=== PATIENT | male | born 1935 | race Caucasian/White ===

== ENCOUNTER 2023-03-10 14:27 | Emergency (ER) | payer MEDICARE, BC ==
[2023-03-10] MEDS ORDERED: Diphtheria,Pertussis(Acell),Tetanus Vaccine 0.5 ML Syringe IM ONE (14:41)
[2023-03-10 14:59] VITALS: BP 141/61; PULSE 62
== END 2023-03-10 15:15 | disposition home or self-care (01) ==
LOC: DL.ED 14:27
DX: S61.411A Laceration without foreign body of right hand, initial encounter (principal); I25.10 Atherosclerotic heart disease of native coronary artery without angina pectoris; W24.0XXA Contact with lifting devices, not elsewhere classified, initial encounter; Z88.8 Allergy status to other drugs, medicaments and biological substances; Z79.82 Long term (current) use of aspirin; Z79.02 Long term (current) use of antithrombotics/antiplatelets; Z23 Encounter for immunization
CPT/HCPCS: 90471; 90715; 99282; 99283-25